=== PATIENT | female | born 1995 | race Hispanic/Latino ===

== ENCOUNTER 2021-02-04 11:05 | Emergency (ER) | payer MEDICAID, OTHER ==
[~2021-02-04] VITALS: Ht 175.3 cm; Wt 102.1 kg
[2021-02-04 11:12] VITALS: BP 139/82
[2021-02-04 11:30] VITALS: BP 135/74
[2021-02-04] MEDS ORDERED: SOLU-MEDROL 125MG VIAL IM SCH (11:45)
[2021-02-04] MEDS ORDERED: METH4TAB3 PO (11:54)
== END 2021-02-04 12:31 | disposition home or self-care (01) ==
LOC: EDH 11:05
DX: M54.5 Low back pain (principal)
CPT/HCPCS: 81025; 96372; 99283; J2930